=== PATIENT | female | born 2000 | race Caucasian/White ===

== ENCOUNTER 2021-07-23 14:58 | Emergency (ER) | payer MEDICAID ==
[~2021-07-23] VITALS: Ht 162.6 cm; Wt 73.5 kg
[2021-07-23 15:01] VITALS: BP 145/83
--- NOTE | 2021-07-23 15:25 | NUR ---
Patient wheelchair assisted to bed 08
--- NOTE | 2021-07-23 15:27 | NUR ---
Patient ambulated to restroom for urine sample, staedy/even gait
--- NOTE | 2021-07-23 15:40 | NUR ---
21 y/o F BIBA from home c/o epigastric pain x 2 days. Patient A&Ox4, ambulatory, reports epigastric pain since yesterday night. Reports pain to epigastric region 5/10, pressure/constant, non-radiating pain. Patient also states left neck "burning" sensation and "tingling to the top of my head." Denies headache, fever, chills, chest pain, back pain, cold-like symptoms, sick household members, dysuria, urinary symptoms. 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 VSS; respirations even/unlabored. Reports ASA 2 hours ago without relief to pain. Pt placed into a gown and UA collected. Bed locked in lowest position, side rails x 1, call light in reach. PMH/Sx/Meds: Denies NKDA
--- NOTE | 2021-07-23 16:40 | NUR ---
Patient resting with both eyes open in semi-fowlers position. gambling monitor in place. Bed locked in lowest position, side rails x 1, call light in reach. VSS; respirations even/unlabored.
--- NOTE | 2021-07-23 18:00 | NUR ---
Patient states pain 2/10 at this time. Bed locked in lowest position, side rails x 1, call light in reach.
--- NOTE | 2021-07-23 19:28 | NUR ---
Report and transfer of care endorsed to JOSE Hdz.
--- NOTE | 2021-07-23 20:00 | NUR ---
pt is awake and alert, all needs met at this time. vss. pt in stable condition.
[2021-07-23] MEDS: HYDROXYZINE HYDROCHLORIDE 25 MG TAB PO STA (20:37)
[2021-07-23] MEDS: ALUMINUM HYD/MAG/SIMETHICONE 30 ML UDC PO ONE (20:38)
[2021-07-23 22:10] VITALS: BP 128/76
--- NOTE | 2021-07-23 22:10 | NUR ---
Patient discharged with v/s stable. Written and verbal after care instructions given and explained. Patient verbalized understanding. Ambulatory with by parent. All questions addressed prior to discharge. Advised to follow up with PMD.
== END 2021-07-23 22:10 | disposition home or self-care (01) ==
LOC: MED 14:58
DX: F43.0 Acute stress reaction (principal); R51.9 Headache, unspecified; R07.9 Chest pain, unspecified
CPT/HCPCS: 93005; 99285